=== PATIENT | female | born 2000 | race Caucasian/White ===

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

== ENCOUNTER 2024-09-04 16:42 | Emergency (ER) | payer OTHER, SELFPAY ==
--- NOTE | 2024-09-04 17:01 | ED_ITS ---
HPI - General Adult General Chief complaint: Skin/Abscess/Foreign Body Stated complaint: cyst lower rear area Time Seen by Provider: 09/04/24 18:42 Source: patient Mode of arrival: ambulatory History of Present Illness ED Provider: HPI narrative: 24-year-old with right gluteal area itchiness, small indurated area from to touch without any rashes over the thighs or vaginal area Related Data Previous Rx's ?Medication ?Instructions ?Recorded amoxicillin 500 mg capsule 500 mg PO TID 5 days #15 ca ps 09/04/24 Allergies Allergy/AdvReac Type Severity Reaction Status Date / Time morphine Allergy Rash Verified 09/04/24 17:05 Review of Systems 2 Constitutional: Constitutional: Reports as per [facility] Past Medical History Medical History Obesity affecting Vitamin D deficiency Surgical History Hx of tonsillectomy Social History Social History Alcohol intake: unknown Patient Tobacco Use Status: Tobacco use Unknown Smoked in Last 30 Days: No Use of substances other than those prescribed or required for medical reasons: No Advance Directives: No Advance Directives Information Provided: Yes Physical Exam ED Vital Signs: Vital Signs - 24 hr 09/04/24 17:02 09/04/24 17:27 09/04/24 18:00 Temperature 97.8 F 98.3 F Pulse Rate 106 H 118 H 104 H Respiratory Rate 18 18 16 Blood Pressure 146/90 H 135/87 124/74 Pulse Oximetry 97 97 97 Oxygen Delivery Method Room Air Room Air Room Air BMI result Body Mass Index 51.2 Const Other: Alert and oriented x4 Examination of the gluteal area with induration approximately 3 x 4 cm area with what appears to be superficial vesicles pus filled, but very thin film been its only a dime sized area Course Course Course Narrative: This is a rapid medical exam performed by Tavon Mckeon NP: Additional HPI, ROS, PE not included below will be deferred to primary provider. Patient is a 24-year-old female 23 weeks gestation presenting with complaint of abscess to right of gluteal cleft. Denies fevers, drainage. Area not visualized in triage due to privacy concerns. Plan: labs Medical Decision Making Medical Decision Making MDM Narrative: Patient is presenting with what appears to be early abscess, area was examined with nurse present as a digital print operator, there is indurated area but the superficial vesicles to me appeared initially as a herpes lesions but this is only 1 area and she states it is not involving any other parts of her buttock or the vaginal area, and herpetic lesions typically do not have indurated base it felt more like an early abscess, we are going to do warm compresses and antibiotics if they want compresses did not resolve and return precautions she may need to have I and D but there is really nothing to drain at this time Differential Diagnosis Differential Diagnoses: The differential diagnosis associated with the presentation includes Abscess, cellulitis, herpes zoster, furuncle Lab Data 09/04/24 18:19 09/04/24 18:19 Labs: Lab Results 09/04/24 Range/Units 18:19 WBC 6.5 (4.8-10.8) X10*3/uL RBC 4.01 L (4.20-5.50) X10*6/uL Hgb 11.8 L (12.0-16.0) g/dl Hct 34.3 L (37.0-47.0) % MCV 85.5 (80.0-98.0) fL MCH 29.4 (27.0-33.0) pg MCHC 34.4 (31.0-35.0) g/dl RDW 13.4 (11.0-16.0) % Plt Count 253 (160-400) X10*3/uL MPV 10.4 (9.4-12.3) fL Immature Gran % (Auto) 1.2 H (0.0-0.4) % Neut % (Auto) 68.9 (45-73) % Lymph % (Auto) 20.5 (20-40) % [place] % (Auto) 7.2 (2-11) % Eos % (Auto) 1.7 (0-4) % Baso % (Auto) 0.5 (0-2) % Lymph # (Auto) 1.3 (1.2-4.9) X10*3/uL [place] # (Auto) 0.5 (0.1-1.2) X10*3/uL Eos # (Auto) 0.1 (0.0-0.4) X10*3/uL Baso # (Auto) 0.0 (0.0-0.2) X10*3/uL Abs Immat Gran (auto) 0.08 H (0.00-0.03) X10*3/uL Absolute Neuts (auto) 4.5 (2.0-8.3) x10*3/uL Absolute Nucleated RBC 0.000 (0.0-0.012) X10*3/uL Nucleated RBC % (auto) 0.0 (0.0-0.2) /100WBC Sodium 138 (135-145) mmol/L Potassium 3.5 (3.3-5.1) mmol/L Chloride 111 H (96-108) mmol/L Carbon Dioxide 21 L (22-29) mmol/L Anion Gap 10 L (12-20) BUN 5 L (9-16) mg/dL Creatinine 0.45 L (0.5-1.4) mg/dL Estim Creat Clear Calc 250.2 Estimated GFR > 60 Random Glucose 104 (60-115) mg/dL Calcium 9.1 (8.4-10.2) mg/dL Total Bilirubin 0.5 (0.0-1.0) mg/dL AST 23 (5-31) U/L ALT 21 (0-31) U/L Alkaline Phosphatase 91 (39-117) U/L Total Protein 6.1 L (6.5-8.0) g/dL Albumin 3.2 L (3.5-5.0) g/dL Discharge Plan Discharge Clinical Impression: Abscess of skin or subcutaneous tissue Patient Disposition: Home, Self-Care Additional Instructions: As discussed it appears that you have an early abscess of your right upper buttock, I would recommend warm compresses to 3 times a day, for the next 3 days do not pick at the area, there is really nothing to drain right now, if you are not better in few days start using amoxicillin 500 mg 3 times a day, if the area starts getting more full in next 3 4 days, you may need to come back to emergency department for incision and drainage, if you develop any rashes anywhere else that appears similar such as on the lower buttocks , the vaginal area or thigh area come back to the ER sooner Prescriptions: New amoxicillin 500 mg capsule 500 mg PO TID 5 Days Qty: 15 0RF Print Language: French
[2024-09-04 17:02] VITALS: BP 146/90; PULSE 106; RESP 18; TEMP 36.6; O2SAT 97; BMI 51.2
[2024-09-04 17:27] VITALS: BP 135/87; PULSE 118; RESP 18; O2SAT 97
[2024-09-04 18:00] VITALS: BP 124/74; PULSE 104; RESP 16; TEMP 36.8; O2SAT 97
[2024-09-04 18:24] LABS: MANUAL DIFF FLAG NO
[2024-09-04 18:39] LABS: Alanine Aminotransferase 21 U/L (0-31); Albumin Level 3.2 g/dL (3.5-5.0); Alkaline Phosphatase 91 U/L (39-117); Anion Gap 10 (12-20); Aspartate Amino Transferase 23 U/L (5-31); Bilirubin Total 0.5 mg/dL (0.0-1.0); Blood Urea Nitrogen 5 mg/dL (9-16); Calcium 9.1 mg/dL (8.4-10.2); Carbon Dioxide 21 mmol/L (22-29); Chloride 111 mmol/L (96-108); Creatinine Clr Calc Pharmacy 250.2; Estimated Glomerular Filt Rate > 60; Glucose Random 104 mg/dL (60-115); Potassium 3.5 mmol/L (3.3-5.1); Sodium 138 mmol/L (135-145); Total Protein 6.1 g/dL (6.5-8.0)
[2024-09-04 18:40] LABS: Basophils Percent Auto 0.5 % (0-2); Eosinophils Absolute Auto 0.1 X10*3/uL (0.0-0.4); Eosinophils Percent Auto 1.7 % (0-4); Hematocrit 34.3 % (37.0-47.0); Hemoglobin 11.8 g/dl (12.0-16.0); Imm Gran Abs Auto 0.08 X10*3/uL (0.00-0.03); Imm Gran Pct Auto 1.2 % (0.0-0.4); Lymphocytes Absolute Auto 1.3 X10*3/uL (1.2-4.9); Lymphocytes Percent Auto 20.5 % (20-40); Mean Corpuscular HGB Conc 34.4 g/dl (31.0-35.0); Mean Corpuscular Hemoglobin 29.4 pg (27.0-33.0); Mean Corpuscular Volume 85.5 fL (80.0-98.0); Mean Platelet Volume 10.4 fL (9.4-12.3); Monocytes Absolute Auto 0.5 X10*3/uL (0.1-1.2); Monocytes Percent Auto 7.2 % (2-11); Neutrophils Absolute Auto 4.5 x10*3/uL (2.0-8.3); Neutrophils Percent Auto 68.9 % (45-73); Platelet Count 253 X10*3/uL (160-400); Red Blood Count 4.01 X10*6/uL (4.20-5.50); Red Cell Distribution Width 13.4 % (11.0-16.0); White Blood Count 6.5 X10*3/uL (4.8-10.8)
--- OUTSIDE RECORDS SUMMARY | 2024-09-04 18:55 | XMS_ITS ---
Author Name [facility] Organization Unknown History of Medication Use Medication Directions Dispensed Refills Start Date End Date Stat us loperamide (IMODIUM A-D) 2 MG capsule Take 1 capsule (2 mg total) by mouth every 4 (four) hours as needed for diarrhea. 03/30/2024 active Problems Problem Status Onset Date Problem Type Date of Resoluti on Source Diarrhea, unspecified type active EncounterDiagnosisAct [facility] CCT Non-recurrent acute suppurative otitis media of right ear without spontaneous rupture of tympanic membrane active EncounterDiagnosisAct CCT Nasal congestion active EncounterDiagnosisAct [facility] Encounters Encounter Type Encounter Reason Primary Diagnosis Location Date Ambulatory GI Problem GI Problem [facility] 03/30/2024 Care Team Organization Name Specialty Phone Email Start Date End [facility] 04/20/2024 05/29/2024 [place] 03/31/2024
[2024-09-04 19:16] VITALS: BP 138/95; PULSE 106; RESP 18; TEMP 36.8; O2SAT 97
== END 2024-09-04 19:34 | disposition home or self-care (01) ==
PROVIDERS: Registered Nurse Emergency; Emergency Provider Emergency Medicine
DX: L02.31 Cutaneous abscess of buttock (principal)
CPT/HCPCS: 36415; 80053; 85025; 99283; 99284